=== PATIENT | female | born 1980 | race Caucasian/White ===

== ENCOUNTER 2018-02-15 08:28 | Observation (INO) | payer OTHER ==
[~2018-02-15] VITALS: Ht 165.1 cm; Wt 63.5 kg
[2018-02-15] MEDS ORDERED: ZOLOFT100 MG PO (08:50)
[2018-02-15] MEDS ORDERED: ZYRTEC10 MG PO (08:51)
--- NOTE | 2018-02-15 11:10 | NUR ---
PATIENT TX HERE FROM THE ER, SHE IS RECEIVING THE LAST OF HER IV ABX AT THIS TIME. PATIENT IS ALERT AND ORIENTED AND ABLE TO TRANSFER HERSELF FROM THE STRETCHER TO THE BED. SHE HAS NO C/O NAUSEA, VOMITING OR PAIN AT THIS TIME.
--- NOTE | 2018-02-15 11:21 | NUR ---
REPORT GIVEN FROM JAH NAIDU. PATIENT IS CURRENTLY NPO. AWAITING DR. MOREL FOR NEW ORDERS.
--- NOTE | 2018-02-15 11:52 | NUR ---
patient assisted to the br. stating she was having mild pain. called [facility] to verify pain medications.
--- NOTE | 2018-02-15 12:12 | NUR ---
DR. MOREL IN ROOM TO ROUND ON PATIENT. DILAUDID 0.4 GIVEN FOR PAIN 03/10. PLAN FOR SURGERY TODAY.
--- NOTE | 2018-02-15 12:32 | NUR ---
PATIENT WENT TO SURGERY. WIPE DOWN DONE. LR AND STRAIGHT TUBING GIVEN TO OR NURSE. PATIENT ASSISTED TO STRETCHER.
--- NOTE | 2018-02-15 13:56 | NUR ---
02/15/18 1355 [place] 1347 PT ARRIVED ASLEEP OFF AND ON. VSS. PT MOVING AND GRABBING AT O2 MASK, PT REORINETED TO PACU. 1354 O2 REMOVED, O2 SAT 100%. RESP EVEN AND UNLABORED. PT RESTING IN BED WITH EYES CLOSED.
--- NOTE | 2018-02-15 14:34 | NUR ---
PATIENT IN SURGERY
--- NOTE | 2018-02-15 14:45 | NUR ---
PATIENT BACK FROM SURGERY. PT TOLERATED TRANSFER FROM STRETCHER TO BED WELL. 3 LAP SITES COVERED WITH TAPE AND GAUZE. NO DRAINAGE NOTED. PATIENT HAS ICE PACK TO ABD. SCDS STARTED. IV FLUIDS SWITCHED TO PUMP TUBING. CLEARS LIQUID DIET EDCUATION GIVEN TO PATIENT. HYPOACTIVE BS. VITALS TAKEN. CONT OXYGEN SATURATION CONNECTED.
--- NOTE | 2018-02-15 16:55 | NUR ---
PATIENT TOLERATING CLEARS WELL. PATIENT STATING SHE FEELS HUNGERY. NO NAUSEA AT THIS TIME. PATIENTS FAMILY IN ROOM.
--- NOTE | 2018-02-15 17:23 | NUR ---
CHANTE TOLERATING CLEAR LIQUID. ASKING FOR MORE TO EAT. CALLED FOR ORDER TO ADVANCE DIET. DR. MOREL GAVE OKAY TO ADVANCE TO FULL LIQUID. DINNER ORDER CHANGED/
[2018-02-15] MEDS ORDERED: ECHINACEA125 MG PO (17:45)
[2018-02-15] MEDS ORDERED: BUTALB-ACETAMI1 EACH PO (17:45)
[2018-02-15] MEDS ORDERED: FLONASE ALLERG9.9 ML NAS (17:46)
[2018-02-15] MEDS ORDERED: WOMEN'S DAILY1 EAC2 PO (17:47)
--- NOTE | 2018-02-15 17:48 | NUR ---
MED REC COMPLETE
--- NOTE | 2018-02-15 18:17 | NUR ---
PATIENT ED ADMIT THIS AFTERNOON FOR APPY. WENT TO SURGERY AT 1230. BACK TO ROOM AROUND 1445. VITALS WNL. ADVANCED DIET TO FULL LIQUID. PATIENT TOLERATING WELL. STBY ASSIST TO BR. VOIDING WELL. IV FLUIDS RUNNING WNL. 3 LAP SITES ARE C/D/I. NORCO FOR PAIN.
--- NOTE | 2018-02-15 20:00 | NUR ---
RECEIVED REPORT AT 1900. FOUND PT IN BED WITH FAMILY AT BEDSIDE. PT DENIED PAIN AT THAT TIME. PT HAD NO NEEDS AT THAT TIME.
--- NOTE | 2018-02-15 20:33 | NUR ---
ROUNDED CHARGE. PATIENT IS RESTING IN BED VISITING WITH FAMILY. PATIENT DENIES ANY COMMENTS, QUESTIONS, OR CONCERNS. NO PAIN OR NAUSEA NOTED. CALL LIGHTIN REACH.
--- NOTE | 2018-02-15 22:00 | NUR ---
V/S ARE WDL, 1 TAB NORCO WAS GIVEN, ALL LOBES ARE CLEAR, ABD SOUNDS ARE PRESENT, PT HAS NOT PASSED GAS YET. PT IS AMBULATING WELL, PO INTAKE IS ADEQUATE, PT IS SL AT THIS TIME. NO NEW CONCERNS AT THIS TIME.
--- NOTE | 2018-02-16 | NUR ---
PT AT THIS TIME IS SLEEPING. 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
--- NOTE | 2018-02-16 01:41 | NUR ---
VITALS AMD I&OS DONE AND CHARTED. FRESH ICE WATER GIVEN. BEDSIDE TABLE AND CALL LIGHT WITHIN REACH. PT NEEDS NOTHING ELSE AT THIS TIME.
--- NOTE | 2018-02-16 02:00 | NUR ---
AT THIS TIME PT IS AWAKE IN BED READING HER BOOK. PT DENIES PAIN AND N/V, ABD SOUNDS ARE PRESENT, CMS ON LEFT FOOT IS INTACT, DRESSING ON LEFT FOOT IS C/D/I. BOTH KIT DRAINS SO FAR HAVE NO SIGNIFICANT OUTPUT. URINE OUTPUT IS ADEQUATE. NO NEW CONCERNS AT THIS TIME.
--- NOTE | 2018-02-16 02:00 | NUR ---
PAIN AT THIS TIME IS 7/10, 0.5MG OF IV DILAUDED WAS GIVEN. ABD SOUNDS ARE PRESENT, PT IS + FOR PASSING GAS. ALL LOBES ARE CLEAR. HR IS IN THE LOW 50'S, WILL CONTINUE TO MONITOR. O2 SATS ON RA >95%. LAP SITES ON ABD X3 ARE C/D/I.
--- NOTE | 2018-02-16 04:04 | NUR ---
PT IS SLEEPING AT THIS TIME.
--- NOTE | 2018-02-16 06:23 | NUR ---
V/S ARE WDL, PAIN IS CONTROLLED WELL WITH AVAILABLE PRN PAIN MEDS. ABD SOUNDS ARE PRESENT AND PT IS PASSING GAS. PT IS TOLERATING FULL LQUID DIET WELL AND HAS NO N/V. PT IS ALSO WALKING WELL TO BATHROOM AND BACK. PT IS SL, PO INTAKE AND OUTPUT IS ADEQUATE. NO NEW CONCERNS FOR THIS PT AT THIS TIME.
--- NOTE | 2018-02-16 06:38 | NUR ---
VITALS AND I&OS DONE AND CHARTED.FRESH WATER GIVEN. GARBAGES EMPTIED. BEDSIDE TABLE AND CALL LIGHT WITHIN REACH. SBA TO THE BATHROOM AND CBACK TO BED. PT NEEDS NOTHING ELSE AT THIS TIME.
--- NOTE | 2018-02-16 08:17 | NUR ---
PT RESTING IN BED WATCHING TV. CURRENTLY RATING PAIN 5/10 IN ABDOMEN. REPORTS PASSING GAS. MORNING ASSESSMENT COMPLETE.
--- NOTE | 2018-02-16 08:17 | CONS ---
[facility] [address] [place], [place] [address] Signed DATE OF CONSULTATION: 02/15/2018 CHIEF COMPLAINT: Right lower quadrant abdominal pain. HISTORY OF PRESENT ILLNESS: Lauren is a 37-year-old female, who developed periumbilical abdominal pain yesterday, but it is localized to the right lower quadrant. She has had nausea, vomiting, and anorexia. She came to emergency room for evaluation. She is tender in the right lower quadrant with a normal white count and negative beta HCG. CT scan of abdomen and pelvis was performed that showed a thickened appendix. Consequently, I was asked to admit her as a general surgeon on-call. She has received IV fluids, antibiotics, and pain control. PAST MEDICAL HISTORY: Irritable bowel syndrome. PAST SURGICAL HISTORY: Bilateral tubal ligation. SOCIAL HISTORY: She does not smoke or drink. She is to [place] at [phone]. They have 2 children. 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 Dr. Mona Herrera is her primary care provider. They prefer the [email or web address]. She does not smoke or drink. FAMILY HISTORY: Mom and dad are healthy. REVIEW OF SYSTEMS: She had 10 systems reviewed and she is very healthy. ALLERGIES: None. MEDICATIONS: Sertraline and Zyrtec. PHYSICAL EXAMINATION: VITAL SIGNS: Her blood pressure 120/80, heart rate 55, respiratory rate 18, and temperature is 97.9. She is 100% on room air. She is 5 feet 5 inches, 63 kg. GENERAL: Lauren is a 37-year-old female, lying supine in her hospital bed. Her is with her along with our nurse, Iqra. She does not appear systemically ill Electronically Signed By: FABIENNE MOREL MD 02/16/18 0817 PATIENT NAME: LAUREN RAM CONSULTATION DATE OF : 76 REPORT #: [id number] PHYSICIAN: FABIENNE MOREL MD PCP: MONA HERRERA MD REPORT IS CONFIDENTIAL AND NOT TO BE RELEASED WITHOUT AUTHORIZATION [facility] [address] [place], [place] [address] Signed or toxic. LUNGS: Clear to auscultation. HEART: Regular rhythm. ABDOMEN: Soft and flat, but she is tender at McBurney's point. LABORATORY DATA: Her white blood cell count is 8.9, neutrophils 85. Beta HCG negative. Albumin is 4.5. RADIOGRAPHIC STUDIES: CT scan of abdomen and pelvis shows a thickened and slightly inflamed appendix. Her uterus also is a little full and heterogeneous and it is recommended she consider an ultrasound. ASSESSMENT AND PLAN: Lauren is a 37-year-old female, who presents with classic appendicitis. She has already been on the Internet reading and she is quite aware of the location and function of the appendix. We have reviewed laparoscopic versus open appendectomy. She understands expected intraop and postop course. We have also reviewed the risks including, but not limited to bleeding, infection, scarring, change in contour of the skin, damage to bowel, appendiceal stump leak, postoperative intraabdominal abscess, incisional hernias, and other unforeseen comorbidities. She has expressed understanding and would like to proceed. Fabienne Morel MD ALB/MODL /[id number] cc: MD Mona Franklin MD Copies: FABIENNE MOREL MD, JONATHAN MD ~ Electronically Signed By: FABIENNE MOREL MD 02/16/18 0817 PATIENT NAME: LAUREN RAM CONSULTATION DATE OF : 76 REPORT #: [id number] PHYSICIAN: FABIENNE MOREL MD PCP: MONA HERRERA MD REPORT IS CONFIDENTIAL AND NOT TO BE RELEASED WITHOUT AUTHORIZATION
--- NOTE | 2018-02-16 08:17 | OR ---
[facility] [address] [place], [place] [address] Signed DATE OF OPERATION: 02/15/2018 SURGEON: Fabienne Morel MD PREOPERATIVE DIAGNOSIS: Acute suppurative appendicitis. POSTOPERATIVE DIAGNOSIS: Acute suppurative appendicitis. PROCEDURE: Laparoscopic appendectomy. ESTIMATED BLOOD LOSS: None. FINDINGS: Lauren had acute suppurative appendicitis. INDICATIONS: Lauren is a 37-year-old female, otherwise quite healthy, who yesterday developed periumbilical abdominal pain that localized to the right lower quadrant with nausea and vomiting, and anorexia. She came to the emergency room for evaluation. The white count was normal, but her neutrophils were 85 and beta-hCG was negative. A CT scan of abdomen and pelvis was performed and she had a thickened and inflamed appendix. I was therefore asked to admit her as a general surgeon on-call. In the meantime, she has received IV fluids, antibiotics, and pain control. I met with Lauren and her , and we discussed her findings. She has already been online reading and made herself knowledgeable with respect to the appendix. We have discussed the location of function of the appendix. We have also discussed laparoscopic versus open appendectomy. She understands expected intraop and postop course. We did review the risks including, but not limited to bleeding, infection, scarring, change in contour of the skin, damage to bowel, appendiceal stump leak, postoperative intraabdominal abscess, incisional hernias, and other unforeseen comorbidities. She had expressed understanding and wished to proceed. PROCEDURE NOTE: Lauren was taken into our operating room and placed in a supine position under general endotracheal tube anesthesia. She was given preoperative antibiotics along with subcutaneous heparin. SCDs were utilized. A Banuelos catheter was inserted with return of Electronically Signed By: FABIENNE MOREL MD 02/16/18 0817 PATIENT NAME: LAUREN RAM OPERATIVE REPORT DATE OF : 76 REPORT #: [id number] PHYSICIAN: FABIENNE MOREL MD PCP: MONA SALVADOR MD REPORT IS CONFIDENTIAL AND NOT TO BE RELEASED WITHOUT AUTHORIZATION [facility] [address] [place], [place] [address] Signed clear yellow urine without difficulty. She was then prepped and draped in the usual sterile fashion. After this, we placed our trocars in our usual positions under direct visualization of camera without difficulty. Her appendix was grasped and elevated in the right lower quadrant. The base of the appendix was cleared off the cautery and divided from the cecum with the help of a linear stapler. The mesoappendix was then divided with a vascular load on the linear stapler. All hemostasis was achieved with the help of the marianne and the tip of the cautery. After this, the appendix was placed into an EndoCatch bag and taken out through the right subcostal trocar site. We then used our laparoscopic suturing device to pass 0 Vicryl suture on either side of the fascia of the subxiphoid trocar site and this was tied down to close this fascia primarily. After this, the remaining trocars were removed and we closed the fascia of the supraumbilical trocar site with interrupted [id number] and simple 0 Vicryl sutures. Local anesthetic was injected into all trocar sites. Each trocar site was irrigated and suctioned out until clear. The skin and dermis of each trocar site were closed with interrupted 3-0 subcuticular Monocryl sutures. Dry gauze and tape were then applied to all incisions. Lauren's Banuelos catheter was removed without difficulty. She was awakened from her anesthesia, extubated in the OR, and taken to recovery room in stable condition. Fabienne Morel MD ALB/MODL /[id number] cc: MD Fabienne Rae MD Copies: MONA SALVADOR MD, ANDREW L MD ~ Electronically Signed By: FABIENNE MOREL MD 02/16/18 0817 PATIENT NAME: LAUREN RAM OPERATIVE REPORT DATE OF : 76 REPORT #: [id number] PHYSICIAN: FABIENNE MOREL MD PCP: MONA SALVADOR MD REPORT IS CONFIDENTIAL AND NOT TO BE RELEASED WITHOUT AUTHORIZATION
--- NOTE | 2018-02-16 08:53 | NUR ---
in room with ptLori
--- NOTE | 2018-02-16 09:09 | NUR ---
in room with pt to discuss discharge. removed dressings from abdomen. incisions well approximated with minimal drainage.
[2018-02-16] MEDS ORDERED: NORCO 5-325 TA1 EACH PO (09:31)
[2018-02-16] MEDS ORDERED: PHENERGAN25 MG PO (09:32)
[2018-02-16] MEDS ORDERED: PROMETHAZINE HC25 M1 PO (09:55)
--- NOTE | 2018-02-16 10:15 | NUR ---
PT COMPLAINED OF PAIN IN ABDOMEN 03/10. GAVE 2 TABS NORCO 5/325 PO.
--- NOTE | 2018-02-16 11:46 | NUR ---
PT DISCHARGE INSTRUCTIONS GIVEN ON MEDICATION, FOLLOW-UP, WHEN TO CONTACT MD, ACTIVITY, AND DIET. PT VERBALIZED UNDERSTANDING. WILL DISCHARGE AFTER LUNCH.
--- NOTE | 2018-02-17 07:43 | DS ---
[facility] [address] [place], [place] [address] Signed ADMISSION DATE: 02/15/2018 DISCHARGE DATE: 02/16/2018 FINAL DIAGNOSIS: Acute suppurative appendicitis. PROCEDURES: 1. Laparoscopic appendectomy. 2. CT scan of abdomen and pelvis. HISTORY OF PRESENT ILLNESS: Lauren is a 37-year-old female, otherwise healthy, who developed periumbilical abdominal pain that localized to the right lower quadrant. This was associated with nausea, vomiting, and anorexia. She came to the emergency room for evaluation. She was tender in the right lower quadrant. White count was normal with neutrophils are 85. Beta-hCG was negative. A CT scan of abdomen and pelvis was ordered and she does have a thickened and inflamed appendix and the uterus seems to be a little enlarged and there was recommendation she consider an outpatient ultrasound. I have been asked to admit her as a general surgeon on-call. HOSPITAL COURSE: Lauren was admitted as above, started on IV fluids, antibiotics, and kept n.p.o. I took her to the operating room later that day and she underwent an uncomplicated laparoscopic appendectomy for acute suppurative appendicitis. She did well both intraop and postop. She has been through a clear liquid and a full liquid diet. Her pain is controlled. She has no nausea, no abdominal bloating, and looks and feels much better. Consequently, we are going to be discharging her to home. DISCHARGE PLANS AND MEDICATIONS: She will be discharged to home with Cygnet 5/325, 1 to 2 tablets p.o. q.4 to 6 hours p.r.n. pain. We will dispense 40 tablets with no refills. We will give her Phenergan 25 mg p.o. q.6 hours p.r.n. for nausea and vomiting, dispensed 10 tablets with one refill. She is welcome to resume her chronic medications at home including the sertraline and the Zyrtec. All the wounds were left open to air. She can perform her activities of daily living including walking up and down stairs and showering and bathing as usual. She is not to lift over 20 pounds for a month, 50 pounds the second month, and after that no restrictions. She can return to work in a few days when she is feeling better. She will return to my office in 7 to 10 days for followup. In addition, she might consider an outpatient ultrasound of the uterus as a followup to her CT scan. She can do this through her primary care provider. Electronically Signed By: FABIENNE MOREL MD 02/17/18 0743 PATIENT NAME: LAUREN RAM DISCHARGE SUMMARY DATE OF : 76 REPORT #: [id number] PHYSICIAN: FABIENNE MOREL MD PCP: MONA SALVADOR MD REPORT IS CONFIDENTIAL AND NOT TO BE RELEASED WITHOUT AUTHORIZATION [address] [address] Signed MD RADHA Franklin/JUSTOL /[id number] cc: MD Fabienne Rae MD Copies: MONA SALVADOR MD, ANDREW L MD ~ Electronically Signed By: FABIENNE MOREL MD 02/17/18 0743 PATIENT NAME: LAUREN RAM DISCHARGE SUMMARY DATE OF : 76 REPORT #: [id number] PHYSICIAN: FABIENNE MOREL MD PCP: MONA SALVADOR MD REPORT IS CONFIDENTIAL AND NOT TO BE RELEASED WITHOUT AUTHORIZATION
== END 2018-02-16 12:15 | disposition home or self-care (01) ==
LOC: ED 08:28 → MS 08:30
PROVIDERS: ADMIT Colon & Rectal Surgery
PROC: 0DTJ4ZZ Resection of Appendix, Percutaneous Endoscopic Approach (ICD-10-PCS; principal; 2018-02-15 13:00)
DX: K35.80 Unspecified acute appendicitis (principal); K58.9 Irritable bowel syndrome, unspecified; Z79.899 Other long term (current) drug therapy
CPT/HCPCS: 00840; 74177; 80053; 81001; 83690; 84703; 85025; 94762; 96361; 96365; 96372; 96375; 96376; 99285; G0378; J0330; J0690; J1100; J1170; J1644; J1885; J2405; J2543; J2704; J3010; J7030; Q9967

== ENCOUNTER 2019-09-10 07:00 | Day surgery (SDC) | payer OTHER ==
[~2019-09-10] VITALS: Ht 165.1 cm; Wt 65.8 kg
--- NOTE | ~2019-09-10 | OR ---
[facility] [address] [place], [place] [address] Draft DATE OF OPERATION: 09/10/2019 SURGEON: Shama Sutherland MD PEDIATRIC CLINICAL DIETICIAN: José Miguel Watts DO. PREOPERATIVE DIAGNOSES: Menorrhagia, submucous fibroid. POSTOPERATIVE DIAGNOSES: Menorrhagia, submucous fibroid, pending pathology. PROCEDURE: TLH-BS, cystoscopy. ANESTHESIA: General ET. ESTIMATED BLOOD LOSS: 50 mL. DRAINS: Banuelos catheter. INDICATIONS AND FINDINGS: The patient is a 39-year-old female, 3, para 1, AB 1, who has been having very heavy periods. She had a trial of OCPs, but then had irregular and prolonged bleeding despite the control pills. She underwent a hysterosonogram, which showed probable submucous fibroid at the fundus, which did not appear amenable to hysteroscopic resection. After discussion of the options, she wished to proceed with hysterectomy. She has undergone prior tubal ligation. At the time of surgery, exam under anesthesia revealed a normal-size uterus. At the time of laparoscopy, the uterus appeared normal. She had evidence of a prior tubal ligation. The ovaries were normal. There was endometriosis over the posterior aspect of the uterus on both the right and the left, as well as over the right ureter. DESCRIPTION OF PROCEDURE: The patient was prepped and draped in the dorsal lithotomy position. A weighted speculum was placed. The anterior lip of the cervix was visualized and grasped with a PATIENT NAME: LAUREN RAM OPERATIVE REPORT DATE OF : 76 REPORT #: [id number] PHYSICIAN: SHAMA SUTHERLAND MD PCP: MONA SALVADOR MD REPORT IS CONFIDENTIAL AND NOT TO BE RELEASED WITHOUT AUTHORIZATION [facility] [address] [place], [place] [address] Draft single-tooth tenaculum. The cavity was then sounded to 8.5 cm. The endocervical canal was then dilated and the VCare inserted. The balloon was inflated at the fundus. Following this, the tenaculum and speculum were removed. The cup was fitted over the cervix and a locking cap was fitted into place. Following this, attention was directed above. The infraumbilical area was injected with 0.5% Marcaine plain. An incision was made with a knife and then each layer was serially elevated and incised until the fascia was opened and easily identified. Stay sutures were then placed of 0 Vicryl. The peritoneum was opened bluntly and Jakob cannula inserted and the balloon inflated. Placement of the scope confirmed proper positioning. CO2 was then introduced into the abdomen. The secondary ports were placed slightly below the level of the umbilicus and laterally. These were placed after transillumination of the area injected with Marcaine. Incision made with a knife and the trocars placed under direct vision. The left hand port was a 5 mm port and the right was a Veress needle followed by the expanding port. The inspection of the pelvis showed that the planned procedure was appropriate. The LigaSure [place] device was then used to remove the patient's left tube by serially coagulating and incising the mesial salpinx. The tube was divided at the cornu and the specimen removed through the right port. The device was then used to serially coagulate and divide the round ligament followed by the utero-ovarian pedicle. At this point, the anterior leaf of the peritoneum could be and it was incised creating a partial bladder flap. The posterior peritoneum was taken down as well. Following this, the uterine vessels were isolated and were coagulated multiple times and divided. Following this, attention was directed to the patient's right side. Again, the tube was excised in the same manner. The round ligament and utero-ovarian pedicle were serially coagulated and divided. The anterior leaf of the peritoneum was created, completing the bladder flap. The posterior peritoneum was taken down as well. The uterine vessels were isolated and were grasped and coagulated multiple times and then divided. Further dissection was done both posteriorly and anteriorly over the lip of the cup that could be seen. Following this, it was felt that the specimen could be removed. The Sonicision device was used to remove the specimen. It was begun posteriorly and wrapped around to the patient's left and around anteriorly followed by starting again posteriorly and wrapping around her right and anteriorly. At this point, the specimen could be removed vaginally intact. Following removal of the specimen, the vagina was packed with a glove with a wet lap allowing the pneumoperitoneum to recreate. Following this, the pelvis was irrigated, reinspected, and it appeared to be hemostatic. The cuff was then closed using the Endo Stitch. This was begun at the patient's right uterosacral ligament, taking care to incorporate both the posterior and anterior portions of the vagina and this was run to the patient's left uterosacral ligament and back to the center. Following this, the pelvis was irrigated and inspected and good hemostasis was noted. The pressure was turned down and again this continued to be hemostatic. The procedure was then terminated. The instruments were removed from the abdomen after allowing as much CO2 as possible to escape. The fascial incision was re-identified and was closed with a running suture of 0 Vicryl. The stay sutures were PATIENT NAME: YOLAUREN MASON OPERATIVE REPORT DATE OF : 76 REPORT #: [id number] PHYSICIAN: SHAMA SUTHERLAND MD PCP: MONA SALVADOR MD REPORT IS CONFIDENTIAL AND NOT TO BE RELEASED WITHOUT AUTHORIZATION [facility] [address] [place], [place] [address] Draft tied across as well. The skin incisions were closed with subcuticular sutures of 3-0 Vicryl Rapide. Attention was directed down below and the pack was removed from the vagina. The Banuelos catheter was removed and the 30-degree scope was used with a cystoscopy to evaluate the bladder. There was no evidence of any bladder injury. The ureteral orifices were identified and the patient's left ureter almost immediately began having free egress of urine. The right side, however, had some peristalsis, but no urine was seen. Because of this, after an extended observation, the decision was made to see if this could be cannulated. The 21-Hungarian cannula was introduced and the 30-degree scope with a 4 mm whistle-tip, but prior to use, free egress of urine was seen to come from the patient's right ureter and this was aborted. The bladder was then drained and the Banuelos catheter replaced. All sponge and needle counts were correct. She tolerated procedure well and was taken to the recovery room in good condition. Shama Sutherland MD PJW/JUSTOL /[id number] cc: MD José Miguel Rae Watts, DO Copies: MONA SALVADOR MD, JAMES D DO ~ PATIENT NAME: LAUREN RAM OPERATIVE REPORT DATE OF : 76 REPORT #: [id number] PHYSICIAN: SHAMA SUTHERLAND MD PCP: MONA SALVADOR MD REPORT IS CONFIDENTIAL AND NOT TO BE RELEASED WITHOUT AUTHORIZATION
[~2019-09-10 07:00] MED LIST: BUTALB-ACETAMI1 EACH PO; ECHINACEA125 MG PO; FLONASE ALLERG9.9 ML NAS; IMITREX25 MG PO; K-TAB ER20 MEQ PO; MELOXICAM15 MG PO; NORCO 5-325 TA1 EACH PO; PHENERGAN25 MG PO; PROMETHAZINE HC25 M1 PO; SUDAFED 12 HOU120 MG PO; WOMEN'S DAILY1 EAC2 PO; ZOLOFT100 MG PO; ZYRTEC10 MG PO
--- NOTE | 2019-09-10 11:58 | NUR ---
09/10/19 1158 [place] 1147 PT ARRIVED TO PACU ON 6L VIA MASK, PT MOVING ARMS AND REACHING FOR FACE, ORAL AIRWAY REMOVED. PT REORIENTED TO PACU. 1152 O2 REMOVED, PT DENIES PAIN AND NAUSEA. PLAN OF CARE DISCUSSED. PT RESTING WITH EYES CLOSED. 1154 MD AT BEDSIDE TALKING TO PT, PT WAKES EASILY.
--- NOTE | 2019-09-10 12:30 | NUR ---
PT IS BACK TO DS FROM PACU. SHE IS BACK TO HER BASELINE AND AWAKE WHEN SHE ARRIVES. SHE IS REPORTING TOLERABLE PAIN AT 5/10, STATES SHE CAN TOLERATE UP TO A 7/10. CALL LIGHT WITHIN REACH. WATER ON BEDSIDE TABLE. NO ADDITIONAL NEEDS AT THIS TIME.
--- NOTE | 2019-09-10 12:37 | NUR ---
KIMMY YIP'Patrick, WITH 9CC'S OF NS EMPTIED OUT OF BALLOON. PT IS GIVEN SALTINE CRACKERS AND CHICKEN BROTHER.
--- NOTE | 2019-09-10 13:24 | NUR ---
PT IS ALERT, ORIENTED AND SUPPORTED BY HER AND DAUGHTER. PT SEEMS SHE IS READY, HAS FEW QUESTIONS. REQUESTED PRAYER, WILL FOLLOW NEEDED.
--- NOTE | 2019-09-10 13:28 | NUR ---
PT IS ABLE TO TOLERATE WATER, BROTH, AND CRACKERS. FAMILY IS AT THE BEDSIDE. CALL LIGHT WITHIN REACH. PT IS REQUESTING A PAIN PILL. NO ADDITIONAL NEEDS AT THIS TIME.
--- NOTE | 2019-09-10 14:34 | NUR ---
PT IS REQUESTING TO GET UP TO GO TO THE BATHROOM. SHE IS ABLE TO VOID 350MLS OF BRIGHT YELLOW URINE. SHE IS REPORTING PAIN OF 7/10 STILL. SHE WOULD LIKE A SECOND PAIN PILL. CALL LIGHT WITHIN REACH. FAMILY STILL AT BEDSIDE. NO ADDITIONAL NEEDS.
--- NOTE | 2019-09-10 15:20 | NUR ---
STATES READY TO GO HOME. HAS BEEN UP AMB. RATES PAIN MOD STATES THIS IS BETTER AND WANTS TO GO. LARGE BANDAID TO UMBILICUS SMALL ONE WITH RED DRAINAGE.
--- NOTE | 2019-09-12 17:21 | PATH ---
[facility] [address] [place], [place] [address] Signed SPECIMEN(S): A UTERUS, CERVIX AND TUBES SPECIMEN SOURCE: A. UTERUS, CERVIX AND TUBES CLINICAL HISTORY: Menorrhagia, uterine fibroids. FINAL PATHOLOGIC DIAGNOSIS: Uterus, cervix and bilateral fallopian tubes, hysterectomy and bilateral salpingectomy: - Cervix: No histopathologic abnormality. - Endometrium: Proliferative endometrium. - Myometrium: Intramural leiomyoma (5 mm in greatest dimension) and adenomyosis. - Serosa: No histopathologic abnormality. - Fallopian tubes: No histopathologic abnormality. - Negative for malignancy. NAL:cml:C2NR MICROSCOPIC EXAMINATION: Histologic sections of all submitted blocks are examined by light microscopy. These findings, together with the gross examination, support the pathologic diagnosis. GROSS DESCRIPTION: The specimen is received in a formalin filled specimen container labeled "CE". A 97 g, intact uterus and cervix is 7.5 x 5.5 x 4.3 cm. The serosa is smooth and sebastian. The ectocervix is smooth and pale pink. The os and endocervical canal are patent. The endometrium is flat, red-sebastian and averages 0.2 cm. There is a 0.5 cm anterior fundic endometrial polyp. The dense sebastian myometrium is thickened to 1.7 cm and is without nodule or induration. The bilateral purple sebastian fallopian tubes each with a free and delicate fimbria did end are 3.0 x 0.5 cm (inked blue) and 5.0 x 0.5 cm. There are no included ovaries. A parts sales representative cross-section and the entire longitudinally sectioned fimbriated ends are submitted. Summary of sections: (A1) Serosa (A2) Anterior and posterior cervix (A3) Anterior endomyometrium with fundic polyp PATIENT NAME: LAUREN RMA PATHOLOGY DATE OF : 76 REPORT #: [id number] PHYSICIAN: MELISA MORFIN PCP: MONA SALVADOR MD REPORT IS CONFIDENTIAL AND NOT TO BE RELEASED WITHOUT AUTHORIZATION [facility] [address] [place], [place] [address] Signed (A4) Anterior endomyometrium (A5) Posterior endomyometrium (A6) Bilateral fallopian tubes GW (under the direct supervision of a pathologist) The Gross Description was prepared using a voice recognition system. The report was reviewed for accuracy; however, sound-alike word errors, addition and/or deletions may occur. If there is any question about this report, please contact Client Services. PERFORMING LABORATORY: The technical component was performed by [facility], [address] [place] [id number] (Feed Mixer Helper: Linda Pedro MD; CLIA# [id number]). [facility] [address] [address] (Feed Mixer Helper: Ish Weller MD; CLIA# [id number]). Diagnostician: Myra Alejandro MD Pathologist Electronically Signed 09/12/2019 Copies: ~ PATIENT NAME: LAUREN RAM PATHOLOGY DATE OF : [birth year] REPORT #: [id number] PHYSICIAN: MELISA MORFIN PCP: MONA SALVADOR MD REPORT IS CONFIDENTIAL AND NOT TO BE RELEASED WITHOUT AUTHORIZATION
== END 2019-09-10 15:10 | disposition home or self-care (01) ==
LOC: DS 07:00
PROVIDERS: Obstetrics & Gynecology
PROC: 0UT94ZZ Resection of Uterus, Percutaneous Endoscopic Approach (ICD-10-PCS; principal; 2019-09-10 08:45)
PROC: 0UT74ZZ Resection of Bilateral Fallopian Tubes, Percutaneous Endoscopic Approach (ICD-10-PCS; 2019-09-10 08:45)
DX: D25.1 Intramural leiomyoma of uterus (principal); F43.21 Adjustment disorder with depressed mood; G43.909 Migraine, unspecified, not intractable, without status migrainosus; K21.9 Gastro-esophageal reflux disease without esophagitis; K58.9 Irritable bowel syndrome, unspecified; Z79.899 Other long term (current) drug therapy; Z98.51 Tubal ligation status
CPT/HCPCS: J0131; J0694; J1100; J1644; J1885; J2405; J2704; J2765; J3010; J7060; J7121

== ENCOUNTER 2022-07-02 14:04 | Emergency (ER) | payer OTHER ==
[~2022-07-02] VITALS: Ht 165.1 cm; Wt 54.4 kg
[~2022-07-02 14:04] MED LIST changes: +CLOMIPRAMINE HC25 MG PO; +HYDROCODON-ACE1 EAC8 PO; +LAMICTAL100 MG PO
[2022-07-02] MEDS ORDERED: HYDROCODON-ACE1 EA10 PO (14:40)
== END 2022-07-02 15:16 | disposition home or self-care (01) ==
LOC: ED 14:04
DX: T23.251A Burn of second degree of right palm, initial encounter (principal); T20.17XA Burn of first degree of neck, initial encounter; T22.10XA Burn of first degree of shoulder and upper limb, except wrist and hand, unspecified site, initial encounter; T24.101A Burn of first degree of unspecified site of right lower limb, except ankle and foot, initial encounter; T20.10XA Burn of first degree of head, face, and neck, unspecified site, initial encounter; T31.0 Burns involving less than 10% of body surface; X08.8XXA Exposure to other specified smoke, fire and flames, initial encounter; F17.200 Nicotine dependence, unspecified, uncomplicated; Z88.5 Allergy status to narcotic agent; Z79.899 Other long term (current) drug therapy
CPT/HCPCS: 99283; A9270